=== PATIENT | male | born 1945 | race Caucasian/White ===

== ENCOUNTER → 2017-02-09 | Outpatient (CLI) | payer OTHER ==
--- NOTE | 2017-02-09 12:47 | Diagnostic Imaging Report ---
Indications: Syncope, history cerebrovascular accident Technique: Three-dimensional [id number] imaging of the central aspect of the intracranial arterial circulation was performed without IV gadolinium administration. Three-dimensional maximum intensity projection images were reconstructed from raw data obtained. Findings: Comparison: None Intracranial segments of the left internal carotid artery proximal to the level of the carotid siphon is occluded, distal to this to its terminus patent. A1 segment left anterior cerebral artery patent but diffusely small in caliber. Intracranial segment of right internal carotid artery, A1 segment of right anterior cerebral artery and A2 segments of both anterior cerebral arteries, , M1 and M2 segments of both middle cerebral arteries, left posterior communicating artery,intracranial segments of both vertebral arteries, basilar artery, P1-P3 segments of both posterior cerebral arteries and major central branches are patent and normal in caliber. Anterior communicating, right posterior communicating arteries not definitely identified. 2.5 mm saccular aneurysm emanates from the junction of the A1 and A2 segments of the left anterior cerebral artery in the expected location of the anterior indicating artery. No additional stenosis, occlusion, dissection, other mural irregularity or intraluminal filling defect, aneurysm, vascular malformation, neovascularity, or early venous opacification demonstrated. 2 cm circumscribed, multilobulated area of parenchymal loss in the deep and subcortical white matter of the lateral aspect of the left frontal lobe. 4.5 cm wedge-shaped, peripherally based area of parenchymal loss in the posterior lateral aspect of the left parietal lobe. 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 Patent anterior communicating artery not definitely identified, however. 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
--- NOTE | 2017-02-09 12:52 | Diagnostic Imaging Report ---
Indications: Syncope, history cerebrovascular accident Technique: Three-dimensional [id number] imaging of the cervical arterial circulation was performed without IV gadolinium administration. Three-dimensional maximum intensity projection images were reconstructed from raw data obtained. Authorization could not be obtained for gadolinium administration. Findings: Comparison: None Images are generally poor quality due to motion, lack of gadolinium. Aortic arch patent, normal in caliber and configuration. Great vessels emanate from the arch normal order. Right brachiocephalic, bilateral common carotid, cervical segment of right internal carotid, bilateral external carotid, bilateral subclavian, cervical segments of bilateral vertebral arteries patent without obvious flow-limiting stenosis. Left internal carotid artery appears to occlude immediately beyond its origin. IMPRESSION: Proximal occlusion of left internal carotid artery No other obvious flow-limiting abnormality of the cervical arterial circulation, evaluation significantly limited due to technical factors described. Repeat imaging with gadolinium recommended for more complete evaluation.
--- NOTE | 2017-02-09 13:30 | Diagnostic Imaging Report ---
Indications: Syncope, history cerebrovascular accident Technique: Sagittal and axial T1 weighted FLAIR, axial T2-weighted fat saturated fast spin echo propeller, T2-weighted FLAIR, T2*-weighted gradient echo, and diffusion sequences of the brain were performed without IV gadolinium administration. Findings: Comparison: None 2 cm circumscribed area of signal change/parenchymal loss in the deep and subcortical white matter the lateral aspect of the left frontal lobe with surrounding T2 signal hyperintensity compatible with gliosis. 4.5 cm wedge-shaped, peripherally based area of similar parenchymal loss posterior lateral left parietal lobe with surrounding gliosis. Subcentimeter focus of similar findings deep/subcortical white matter posterior aspect right parietal lobe. Foci of T2 signal hyperintensity scattered throughout the bilateral periventricular and deep white matter. No evidence of mass or hemorrhage, other signal abnormality, mass effect, midline shift, hydrocephalus, or increased intracranial pressure. No restricted diffusion. Increased signal in left internal carotid artery below supraclinoid segment. Remaining central vascular flow voids are preserved. Mucoperiosteal thickening in paranasal sinuses. IMPRESSION: No evidence of acute intracranial pathology. 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
== END | disposition home or self-care (01) ==
LOC: MRI 10:05
DX: R55 Syncope and collapse (principal); Z86.73 Personal history of transient ischemic attack (TIA), and cerebral infarction without residual deficits; I67.1 Cerebral aneurysm, nonruptured; J32.9 Chronic sinusitis, unspecified
CPT/HCPCS: 70544; 70547; 70551